=== PATIENT | male | born 1995 | race Caucasian/White ===

== ENCOUNTER 2018-06-12 08:53 | Emergency (ER) | payer OTHER ==
[~2018-06-12] VITALS: Ht 177.8 cm; Wt 77.1 kg
[~2018-06-12 08:53] MED LIST: ATARAX25 MG ORAL; HYDROCORTISONE30 G2 TP; PERMETHRIN60 GM TOPIC
[2018-06-12] MEDS ORDERED: LORazepam Inj 2mg/ml 1ml IM ONE ×2 (09:15→10:30)
[2018-06-12] MEDS ORDERED: Haloperidol 5mg/ml Inj IM ONE ×2 (10:00→10:30)
[2018-06-12] MEDS ORDERED: DiphenhydrAMINE 50mg/ml Inj IM ONE (10:30)
[2018-06-12 11:35] VITALS: BP 132/82
[2018-06-12 11:43] LABS: BASOPHILS % (AUTO) 0.8 % (0.0-2.0); EOSINOPHILS % (AUTO) 0.1 % (0.0-3.0); HEMATOCRIT 45.7 % (42.0-52.0); HEMOGLOBIN 15.4 G/DL (14.2-18.0); LYMPHOCYTES % (AUTO) 10.6 % (20.0-45.0); MEAN CORPUSCULAR VOLUME 88 FL (80-99); MONOCYTES % (AUTO) 6.4 % (1.0-10.0); NEUTROPHILS % (AUTO) 82.2 % (45.0-75.0); PLATELET COUNT 185 K/UL (150-450); RED BLOOD COUNT 5.21 M/UL (4.70-6.10); RED CELL DISTRIBUTION WIDTH 11.9 % (11.6-14.8); WHITE BLOOD COUNT 14.4 K/UL (4.8-10.8)
[2018-06-12 11:49] LABS: ANION GAP 12 mmol/L (5-15); BLOOD UREA NITROGEN 24 mg/dL (7-18); CALCIUM 9.2 MG/DL (8.5-10.1); CARBON DIOXIDE 24 MMOL/L (21-32); CHLORIDE 103 MMOL/L (98-107); CREATININE 1.2 MG/DL (0.55-1.30); POTASSIUM 3.3 MMOL/L (3.5-5.1); SODIUM 138 MMOL/L (136-145)
[2018-06-12 11:56] LABS: ALANINE AMINOTRANSFERASE 20 U/L (12-78); ALBUMIN 4.2 G/DL (3.4-5.0); ALBUMIN/GLOBULIN RATIO 1.4 (1.0-2.7); ALKALINE PHOSPHATASE 95 U/L (46-116); ASPARTATE AMINO TRANSFERASE 24 U/L (15-37); BILIRUBIN,TOTAL 1.3 MG/DL (0.2-1.0)
[2018-06-12 12:05] LABS: BILIRUBIN,DIRECT 0.2 MG/DL (0.0-0.3)
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
[2018-06-12 14:51] VITALS: BP 129/79
[2018-06-12 14:53] VITALS: BP 129/79
== END 2018-06-12 14:53 | disposition home or self-care (01) ==
LOC: EDBD 08:53 → EMR 09:56
DX: R45.1 Restlessness and agitation (principal)
CPT/HCPCS: 36415; 80053; 80307; 80329; 82248; 85025; 96360; 96372; 99284; J1200; J1630

== ENCOUNTER 2018-10-01 06:52 | Emergency (ER) | payer OTHER ==
[~2018-10-01] VITALS: Ht 180.3 cm; Wt 79.4 kg
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
[2018-10-01] MEDS ORDERED: Bacitracin Oint UD TOPIC ONE ×2 (07:00→07:15)
[2018-10-01] MEDS ORDERED: LORazepam 0.5mg tab ORAL ONE (07:00)
--- NOTE | 2018-10-01 07:05 | NUR ---
ED Nurse Note: verbal order of bacitracin per ermd
--- NOTE | 2018-10-01 07:07 | NUR ---
HAND-OFF: Report given to STUART Kinsey.
[2018-10-01] MEDS ORDERED: LORazepam 1mg tab ORAL ONE (07:15)
--- NOTE | 2018-10-01 07:15 | Emergency Room Report ---
History of Present Illness General Chief Complaint: Behavioral Complaint Source: Patient, Law Enforcement Present Illness HPI This patient presents in the custody of law enforcement. He became combative with the law enforcement officers while they were doing a routine probation search for his brother. He was placed under arrest for battery, he was stating that he was short of breath and started acting bizarrely. He had also started rubbing his neck skin on chickenwire. Apparently, the officers were doing a routine probation search for the patient's brother. The patient then started acting aggressively towards the law enforcement officers and began spitting on them. He then resisted arrest. He states that he has "mental issues." He denies that he is on any medications for any psychiatric condition. He states he has anxiety and schizophrenia. He has not been seeing a psychiatrist. He states that his symptoms started whenever the officers arrived at his home. He denies recent illness. He has no other specific complaints. Allergies: Coded Allergies: No Known Allergies (Unverified , 02/11/18) Patient History Past Medical History: see triage record, psych hx Reviewed Nursing Documentation: PMH: Agreed; PSxH: Agreed Nursing Documentation-PMH History Of Psychiatric Problem: Yes - psychosis Review of Systems All Other Systems: negative except mentioned in HPI Physical Exam Vital Signs Date Time Temp Pulse Resp B/P (MAP) Pulse Ox O2 Delivery O2 Flow Rate FiO2 10/01/18 06:51 24 Room Air 10/01/18 06:54 94 Sp02 EP Interpretation: reviewed, normal General Appearance: no apparent distress, alert, GCS 15, non-toxic Head: normocephalic, atraumatic Eyes: bilateral eye normal inspection ENT: hearing grossly normal, normal pharynx, no angioedema, normal voice Neck: full range of motion, supple/symm/no masses Respiratory: chest non-tender, lungs clear, normal breath sounds, no respiratory distress, no retraction, no accessory muscle use, speaking full sentences Cardiovascular #1: no edema, tachycardia Gastrointestinal: normal inspection Rectal: deferred Musculoskeletal: normal inspection, normal range of motion Neurologic: alert, oriented x3, responsive, motor strength/tone normal, sensory intact, speech normal Psychiatric: judgement/insight normal, memory normal, no suicidal/homicidal ideation, anxious, other - Intermittent hyperventiliation. Able to calm patient verbally. Skin: normal color, no rash, warm/dry, well hydrated Medical Decision Making Diagnostic Impression: Primary Impression: Behavioral disorder Additional Impression: Substance abuse ER Course This patient presents in custody of law enforcement. He is very angry that he is being arrested. Every question that I ask him goes back to the law enforcement officers. When I asked him what drugs he used today, he states, "law enforcement officers." When I asked him why he is in the emergency Department he states because "the law enforcement officers came to my home." He also states that he is having an anxiety attack. He is behaving consistent with a stimulant ingestion. He may have an underlying psychiatric condition but it is difficult to assess given the patient's agitation. Regardless, the patient's evaluation overall was benign. He was given oral Ativan to decrease his anxiety. He had resolution of his symptoms. He was resting comfortably. I did obtain an EKG which showed normal sinus rhythm. My medical screening exam did not identify any further need for emergency department care. Likely this patient has amphetamines or other illicit drugs on board given his presentation. Overall, I did not identify an emergency medical condition. The patient is cleared for incarceration. EKG Diagnostic Results Rate: normal Rhythm: NSR ST Segments: no acute changes Rhythm Strip Diag. Results EP Interpretation: yes Rate: 60's Rhythm: NSR, no PVC's, no ectopy Last Vital Signs Date Time Temp Pulse Resp B/P (MAP) Pulse Ox O2 Delivery O2 Flow Rate FiO2 10/01/18 06:54 94 24 Room Air Status: improved Disposition: D/C TO LAW ENFORCEMENT IN CUST Condition: Improved Patient Instructions: Self-Destructive Behavior Filomena Batres DO Oct 01, 2018 07:15
[2018-10-01 07:25] VITALS: BP 102/65
--- NOTE | 2018-10-01 07:26 | NUR ---
ED Nurse Note: Received pt in bed with handcuff on both wrists. pt is too agitated and drowsy at the same time to assess mental status. vital signs stable as documented.
[2018-10-01 09:03] VITALS: BP 107/65
--- NOTE | 2018-10-01 09:05 | NUR ---
ER DISCHARGE NOTE: Patient is cleared to be discharged per ERMD and clearance for residential done, pt is aox4, on room air, with stable vital signs. pt was given dc instructions, pt was able to verbalize understanding, pt id band removed. pt is able to ambulate with steady gait. Pt left department with handcuff on and assisted by . pt took all belongings.
== END 2018-10-01 09:08 ==
LOC: EDBD 06:52 → EMR 07:15
DX: F91.8 Other conduct disorders (principal); F19.10 Other psychoactive substance abuse, uncomplicated; F29 Unspecified psychosis not due to a substance or known physiological condition
CPT/HCPCS: 99283